=== PATIENT | male | born 1960 | race Caucasian/White ===

== ENCOUNTER 2022-08-30 01:35 | Emergency (ER) | payer BC | END 2022-08-30 02:31 | disposition home or self-care (01) | LOC: CSHERS 01:35 | DX: J20.9 Acute bronchitis, unspecified (principal); I10 Essential (primary) hypertension; E78.00 Pure hypercholesterolemia, unspecified | CPT/HCPCS: 71045 ==

== ENCOUNTER 2023-02-16 09:08 | Outpatient (CLI) | payer BC ==
[2023-02-16] MEDS ORDERED: Iopamidol 300 61% 100 ML VIAL FS ONE (12:28)
== END 2023-02-16 09:09 | disposition home or self-care (01) ==
LOC: CSHCT 09:08
PROVIDERS: ATTEND Urology
DX: L04.9 Acute lymphadenitis, unspecified (principal)
CPT/HCPCS: 72193; 82565